=== PATIENT | female | born 1995 | race Caucasian/White ===

== ENCOUNTER → 2016-11-18 | Outpatient (CLI) | payer OTHER ==
--- NOTE | 2016-11-18 16:18 | MAMMOGRAPHY REPORT ---
ULTRASOUND OF LEFT BREAST: 11/18/2016 CLINICAL HISTORY: 21 year old female with a one-month history of a palpable 1 cm mass in the subareo lar left breast. No skin changes or nipple discharge. No known family history of breast cancer. COMPARISON: No prior exams were available for comparison. FINDINGS: Real-time high-resolution sonographic evaluation was performed in the area of palpable lum p pointed out by the patient (3:00 periareolar/subareolar left breast). On visual inspection, there is no evidence of discoloration of the areola or skin erythema. On ultrasound, there is a lobulate d parallel circumscribed hypoechoic solid mass measuring 13.4 x 8.4 x 10.6 mm. Although this most l ikely represents a benign fibroadenoma, definitive characterization with tissue sampling is recommen ded. Confluent dense glandular tissue is seen in the retroareolar left breast. No other definite m ass is identified. IMPRESSION: ACR BI-RADS CATEGORY 4A: LOW SUSPICION FOR MALIGNANCY - FOLLOW-UP RECOMMENDED The palpable lump in the 3:00 subareolar/periareolar left breast correlates with a benign-appearing solid mass on ultrasound measuring 13.4 mm in maximum dimension. Although this most likely represen t a benign fibroadenoma, definitive characterization with an ultrasound-guided core needle biopsy is recommended. These results and recommendations were discussed with the patient at the time of the exam. Nuvia Putnam M.D. ay/:11/18/2016 14:31:58 Nutritionalist: Dr. Nuvia Putnam, [facility] letter sent: Abnormal 4/5 BI-RADS Code: ACR BI-RADS Category 4A: Low Suspicion For Malignancy
== END | disposition home or self-care (01) ==
LOC: C.MAMM 13:47
PROVIDERS: ATTEND Nurse Practitioner Family
DX: N63 Unspecified lump in breast (principal)

== ENCOUNTER → 2016-11-28 | Outpatient (CLI) | payer OTHER ==
--- NOTE | 2016-11-28 08:49 | Discharge Instructions ---
Discharge Instructions Procedure Procedure Date: Nov 28, 2016. Reason for visit: Left Lump. Discharge Discharge Date: Nov 28, 2016. Discharge Diagnosis: status post breast biopsy Instructions Activity Recommendations: Additional Limitations (see below) Return to School/Work: no limitations Recommended Home Diet: No Limitations Provider Instructions: ACTIVITY RECOMMENDATIONS: * No lifting, pushing, pulling or exercising the affected side for three days. RETURN TO SCHOOL/WORK: * You may return to work/school after the procedure, but do not perform any strenuous activities for 24 to 48 hours. MEDICATIONS: * Tylenol (two 325 mg) every four to six hours if needed for mild pain (if not allergic to Tylenol). DIET: * Resume previous diet. SPECIAL CARE INSTRUCTIONS: * Keep biopsy site dry for 24 hours. May shower after 24 hours, but do not soak (bathe) incision. * May remove Tegaderm (plastic patch) tomorrow AFTER showering. * Leave the steri-strips on for one week. Allow the steri-strips to fall off by themselves. If not off after one week, you may remove them. You may place a Bandaid crosswise over the strips, if desired. * Apply ice 10 minutes on and 10 minutes off as needed. * Wear a bra at bedtime to sleep more comfortably for 2-3 days. * Your referring physician should have the results after approximately 5 to 7 business days. * Call for unusual bleeding, fever, drainage, etc or if you have any questions call during normal business hours or after hours call Dr Vaca, . FOLLOW UP VISIT: Follow-up with Referring Physician as scheduled. [facility] Recommendations: Call your doctor if: * Temperature above 101 degrees * Pain not relieved by pain medicine ordered * There is increased drainage or redness from any incision * You have any unanswered questions or concerns. Your Doctors Instructions noted above were prepared by provider Brooklyn Vaca. Patient Signature Section: Patient Instructions Signature Page Keara Dong Patient (or Guardian) Signature/Date: I have read and understand the instructions given to me by my caregivers. Caregiver/RN/Doctor Signature/Date: The above-named patient and/or guardian has received patient instructions on this date. + Original Patient Signature Page (only) stays with chart. Please make copy for patient.
--- NOTE | 2016-11-28 12:53 | MAMMOGRAPHY REPORT ---
ULTRASOUND GUIDED BIOPSY LEFT BREAST: 11/28/2016 CLINICAL HISTORY: Left 3:00 breast mass. PATIENT CONSENT: The procedure, risks and benefits were discussed with the patient and informed writ ten consent was obtained. A timeout was performed immediately prior to the procedure. PROCEDURE DESCRIPTION: With ultrasound guidance, aseptic technique, and lidocaine as the local anest hetic (1% lidocaine to anesthetize the skin and 1% lidocaine with epinephrine to anesthetize the archana per tissues), the mass of concern was sampled 4 times with a 14-gauge Achieve biopsy needle. Immedi ately thereafter, with ultrasound guidance, aseptic technique, and lidocaine as the local anesthetic , a metallic localizer clip was placed centrally in the mass. Clip placement was confirmed on ultra sound. Direct pressure was applied to the site immediately post procedure and hemostasis was achiev ed. The patient tolerated the procedure without complication. She was given wound care instructions . The specimens were sent to pathology for analysis. COMPARISON: Comparison is made to exam dated: 11/18/2016 ultrasound - [facility]. IMPRESSION: ULTRASOUND GUIDED BIOPSY Ultrasound guided core needle biopsy of the left 3:00 periareolar breast mass, with clip placement. The patient will receive pathology results from her referring physician. Brooklyn Vaca M.D. ah/:11/28/2016 08:51:17 Attending Technologist: Brooklyn Vaca MD, [facility] Accounting Bookkeeper: Jaci ROMAN(R)(M), [facility]
== END | disposition home or self-care (01) ==
LOC: C.MAMM 08:24
PROVIDERS: ATTEND Nurse Practitioner Family
DX: D24.2 Benign neoplasm of left breast (principal)